=== PATIENT | male | born 1930 | race Caucasian/White ===

== ENCOUNTER 2018-07-26 23:45 | Inpatient (IN) | payer MEDICARE, MEDICAID ==
[2018-07-27 00:38] VITALS: BP 156/77
[2018-07-27 05:36] LABS: HEMOGLOBIN 12.4 gm/dL (12-16); MONOCYTE ABSOLUTE 0.6 Th/cmm (0.3-1.0); RED BLOOD COUNT 3.82 Mil/cmm (3.80-5.80)
[2018-07-27 05:38] LABS: % BASOPHILS 0.2 % (0.0-2.0); % EOSINOPHILS 0.9 % (0.0-5.0); % LYMPHOCYTES 37.6 % (20.0-50.0); % NEUTROPHILS 54.3 % (40.0-80.0); EOSINOPHILE ABSOLUTE 0.1 Th/cmm (0.1-0.4); HEMATOCRIT 36.1 % (41.0-60); LYMPHOCYTE ABSOLUTE 3.1 Th/cmm (1.5-3.0); MEAN CELL VOLUME 94.6 fl (80-99); MEAN CORPUSCULAR HEMOGLOBIN 32.4 pg (27.0-31.0); MEAN CORPUSCULAR HGB CONC 34.2 pg (28.0-36.0); MEAN PLATELET VOLUME 7.3 fl; NEUTROPHILE ABSOLUTE 4.5 Th/cmm (1.8-8.0); PLATELET COUNT 300 Th/cmm (150-400); RED CELL DISTRIBUTION WIDTH 13.2 % (11.5-20.0); WHITE BLOOD COUNT 8.3 Th/cmm (4.8-10.8)
[2018-07-27 06:03] LABS: ALB/GLOB RATIO 1.1 (1.0-1.8); ALBUMIN 2.9 gm/dL (4.2-5.5); ALKALINE PHOSPHATASE 51 U/L (34-104); ANION GAP 11.8 (7.0-16.0); BILIRUBIN,TOTAL 0.5 mg/dL (0.3-1.0); BUN - UREA NITROGEN 24 mg/dL (7-25); CALCIUM SERUM 8.8 mg/dL (8.6-10.3); CARBON DIOXIDE 19.7 mEq/L (21.0-31.0); CHLORIDE 111 mEq/L (98-107); CREATININE - SERUM 0.7 mg/dL (0.7-1.3); GLUCOSE 80 mg/dL (70-105); POTASSIUM SERUM 3.5 mEq/L (3.5-5.1); SGOT 15 U/L (13-39); SGPT/ALT 15 U/L (7-52); SODIUM SERUM 139 mEq/L (136-145); TOTAL PROTEIN,SERUM 5.6 gm/dL (6.0-8.3)
[2018-07-27] MEDS: INSULIN ASPART SLIDING SCALE 100 UNITS/ML UNIT SUBQ SCH ×4 (07:30→21:44)
--- NOTE | 2018-07-27 08:41 | History and Physical ---
History of Present Illness - HPI Chief Complaint: syncopal vs near-syncopal episode HPI: 87 y/o male who was transferred from [facility] for syncopal vs near syncopal episode. pt denies begum, sob, chest pain, patient passed out for 20 minutes. Patient has history of diabetes mellitus and hypertension but not on meds. Patient had a fullwork done in the ER at [place] which included CT head, chest xray, CBC, CMP, troponinm, BNP which was essentially normal. Please see attached transfer records. Patient was directly admitted for further evaluation and treatment. 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 Pertinent Hx GI: Report: No Pertinent Hx Psych: Report: No Pertinent Hx Musculoskeletal: Report: No Pertinent Hx Rheumatologic: Report: No pertinent Hx Infectious Disease: Report: No Pertinent Hx Renal/: Report: No Pertinent Hx Endocrine: Report: Diabetes (DM by history) Dermatology: Report: No Pertinent Hx - Past Surgical History Past Surgical History: No pertinent Hx Family Medical History - Family Member Mother History Unknown: Yes Social History Smoke: No Alcohol: None Drugs: None Lives: With Family - Allergies Allergies/Adverse Reactions: Allergies Allergy/AdvReac Type Severity Reaction Status Date / Time No Known Allergies Allergy Verified 07/27/18 00:38 Review of Systems - Review of Systems Constitutional: Report: No Significant Eyes: Report: No Significant ENT: Report: No Significant Respiratory: Report: No Significant Cardiovascular: Report: No Significant Gastrointestinal: Report: No Significant Genitourinary: Report: No Significant Musculoskeletal: Report: No Significant Skin: Report: No Significant Neurological: Report: No Significant Physical Exam - Physical Exam HEENT: Report: Ears Nose Throat within normal limits, Pharnyx within normal limits Neck: Report: Within normal limits Cardiovascular Systems: Report: +s1/s2 noted, Regular, Rate and Rhythm Respiratory: Report: Breath Sounds are within normal limits, Clear to Auscultation of lung morrow - Lab Results All Lab Results last 24 hours: Laboratory Results - last 24 hr 07/27/18 07/27/18 07/27/18 05:00 05:00 06:44 WBC 8.3 RBC 3.82 Hgb 12.4 Hct 36.1 L MCV 94.6 MCH 32.4 H MCHC Differential 34.2 RDW 13.2 Plt Count 300 MPV 7.3 Neutrophils % 54.3 Lymphocytes % 37.6 Monocytes % 7.0 Eosinophils % 0.9 Basophils % 0.2 Sodium 139 Potassium 3.5 Chloride 111 H Carbon Dioxide 19.7 L Anion Gap 11.8 BUN 24 Creatinine 0.7 Est GFR ( Amer) TNP Est GFR (Non-Af Amer) TNP BUN/Creatinine Ratio 34.3 Glucose 80 POC Glucose 71 Calcium 8.8 Total Bilirubin 0.5 AST 15 ALT 15 Alkaline Phosphatase 51 Total Protein 5.6 L Albumin 2.9 L Globulin 2.7 Albumin/Globulin Ratio 1.1 - Assessment Assessment: syncopal vs near-syncopal episode - Plan Plan: Cardiology consult Neurology consult telemetry cbc, cmp heplock
[2018-07-27] MEDS ORDERED: IOHEXOL 350mgI/mL 150mL IV ONE (19:46)
--- NOTE | 2018-07-28 04:35 | Consultation ---
DATE OF CONSULTATION: 07/27/[address] Modesto Pineda. HISTORY OF PRESENT ILLNESS: This is an 87-year-old male patient who was in the wheelchair, was on the chair restriction, patient had syncopal episode, 911 was called and the patient was transferred to [facility]. The patient's CT scan negative. Following this, the patient is transferred to [facility] with insurance reason. PAST MEDICAL HISTORY: Parkinson's disease, BPH, hypertension, incontinence of urine. FAMILY HISTORY: Unremarkable. SOCIAL HISTORY: No history of smoking, alcohol abuse. ALLERGIES: None. PHYSICAL EXAMINATION: VITAL SIGNS: Blood pressure 158/87, pulse 71, respirations 21. HEAD: Normocephalic. No lumps or bumps. EYES: Pupils equal, reactive to light. Fundi show AV nicking, sclerae white, conjunctivae pink. NECK: Carotid 2+. Normal upstroke. JVD flat. Thyroid not palpable. Lymph nodes not palpable. CHEST: Shows increased AP diameter. No kyphosis, scoliosis. LUNGS: Bilateral bronchovesicular breath sounds. HEART: PMI fifth intercostal space with lateral to midclavicular line. S1, S2. No S3, S4, soft systolic murmur. ABDOMEN: Soft. Liver, spleen not palpable. No organomegaly. Bowel sounds active. NEUROLOGIC: No focal neurological deficit. EXTREMITIES: Peripheral pulses 2+. No pedal edema. CLINICAL IMPRESSION: 1. Syncope. 2. Hypertension. 3. Benign prostatic hypertrophy. 4. Incontinence of urine. 5. Parkinson's disease. 6. Deafness. PLAN: Admit the patient. We will get troponin level, EKG, echocardiogram. JOB# [id number]
--- NOTE | 2018-07-28 08:17 | Diagnostic Imaging Report ---
Carotid ultrasound HISTORY: Syncope COMPARISON: None Technique: Longitudinal and transverse sonographic sector images of the carotid arteries were obtained with doppler analysis. FINDINGS: Exam of the right-sided demonstrates intimal thickening and mild to moderate generalized atherosclerotic vascular disease. Exam of the left side demonstrates intimal thickening and mild to moderate generalized atherosclerotic vascular disease. The velocity and velocity ratios are within normal limits. Antegrade vertebral artery flow is demonstrated bilaterally. IMPRESSION: Intimal thickening and mild to moderate generalized atherosclerotic vascular disease, left greater than right. No evidence of hemodynamic significant stenosis. Please correlate clinically.
[2018-07-28] MEDS: INSULIN ASPART SLIDING SCALE 100 UNITS/ML UNIT SUBQ SCH (08:32)
--- NOTE | 2018-07-28 08:50 | General Progress Note ---
Subjective - Review of Systems Service Date: 07/28/18 Subjective: Awake, alert, afebrile. no acute distress. for CT head today. For ECHO. Objective - Results Result Diagrams: 07/27/18 05:00 07/27/18 05:00 Recent Labs: Laboratory Last Values WBC 8.3 Th/cmm (4.8-10.8) 07/27/18 05:00 RBC 3.82 Mil/cmm (3.80-5.80) 07/27/18 05:00 Hgb 12.4 gm/dL (12-16) 07/27/18 05:00 Hct 36.1 % (41.0-60) L 07/27/18 05:00 MCV 94.6 fl (80-99) 07/27/18 05:00 MCH 32.4 pg (27.0-31.0) H 07/27/18 05:00 MCHC Differential 34.2 pg (28.0-36.0) 07/27/18 05:00 RDW 13.2 % (11.5-20.0) 07/27/18 05:00 Plt Count 300 Th/cmm (150-400) 07/27/18 05:00 MPV 7.3 fl 07/27/18 05:00 Neutrophils % 54.3 % (40.0-80.0) 07/27/18 05:00 Lymphocytes % 37.6 % (20.0-50.0) 07/27/18 05:00 Monocytes % 7.0 % (2.0-10.0) 07/27/18 05:00 Eosinophils % 0.9 % (0.0-5.0) 07/27/18 05:00 Basophils % 0.2 % (0.0-2.0) 07/27/18 05:00 Sodium 139 mEq/L (136-145) 07/27/18 05:00 Potassium 3.5 mEq/L (3.5-5.1) 07/27/18 05:00 Chloride 111 mEq/L (98-107) H 07/27/18 05:00 Carbon Dioxide 19.7 mEq/L (21.0-31.0) L 07/27/18 05:00 Anion Gap 11.8 (7.0-16.0) 07/27/18 05:00 BUN 24 mg/dL (7-25) 07/27/18 05:00 Creatinine 0.7 mg/dL (0.7-1.3) 07/27/18 05:00 Est GFR ( Amer) TNP 07/27/18 05:00 Est GFR (Non-Af Amer) TNP 07/27/18 05:00 BUN/Creatinine Ratio 34.3 07/27/18 05:00 Glucose 80 mg/dL (70-105) 07/27/18 05:00 POC Glucose 85 MG/DL (70 - 105) 07/28/18 06:04 Calcium 8.8 mg/dL (8.6-10.3) 07/27/18 05:00 Total Bilirubin 0.5 mg/dL (0.3-1.0) 07/27/18 05:00 AST 15 U/L (13-39) 07/27/18 05:00 ALT 15 U/L (7-52) 07/27/18 05:00 Alkaline Phosphatase 51 U/L (34-104) 07/27/18 05:00 Total Protein 5.6 gm/dL (6.0-8.3) L 07/27/18 05:00 Albumin 2.9 gm/dL (4.2-5.5) L 07/27/18 05:00 Globulin 2.7 gm/dL 07/27/18 05:00 Albumin/Globulin Ratio 1.1 (1.0-1.8) 07/27/18 05:00 - Physical Exam Vitals and I&O: Vital Signs Temp 97.7 F 07/28/18 07:52 Pulse 65 07/28/18 07:52 Resp 18 07/28/18 07:52 BP 142/73 07/28/18 07:52 Pulse Ox 99 07/28/18 07:52 Intake & Output 07/27/18 07/28/18 07/28/18 18:59 06:59 18:59 Intake Total 800 Balance 800 Weight (lbs) 47.627 kg Intake: Oral 800 Other: # Voids 2 Weight Source Bedscale Active Medications: Current Medications Carbidopa/Levodopa (Sinemet 25mg-100 Mg) 1 tab PO TID JEREMIAS Stop: 09/25/18 20:59 Last Admin: 07/28/18 08:34 Dose: 1 tab Insulin Aspart (Novolog Insulin Sliding Scale) 0 units SUBQ ACHS [facility]; Protocol Stop: 09/25/18 07:29 Last Admin: 07/28/18 08:32 Dose: Not Given Oxybutynin Chloride (Ditropan) 5 mg PO BID [facility] Stop: 09/25/18 16:59 Last Admin: 07/28/18 08:34 Dose: 5 mg Tamsulosin HCl (Flomax) 0.4 mg PO HS [facility] Stop: 09/25/18 20:59 Last Admin: 07/27/18 21:37 Dose: 0.4 mg General: Alert, No acute distress HEENT: Atraumatic, PERRLA, EOMI Neck: Supple Cardiovascular: Regular rate, Normal S1, Normal S2 Lungs: Clear to auscultation Abdomen: Bowel sounds Extremities: no Clubbing, no Cyanosis, no Edema Neurological: Normal gait, Normal speech Assessment/Plan - Assessment Assessment: syncopal vs near-syncopal episode HTN BPH Incontinence Parkinson's - Plan Plan: continue current order. For CT carotid angio today ECHO pending
--- NOTE | 2018-07-28 13:49 | Cardiology ---
07/27/[address] Modesto Pineda. M-MODE ECHOCARDIOGRAM: Mitral valve, anterior leaflet of mitral valve shows normal excursion, EF velocity. Posterior leaflet of mitral valve shows normal excursion. Left ventricular posterior wall shows increased thickness, normal excursion. Interventricular septum shows increased thickness, normal excursion. There is minimal hypertrophy of the left ventricle, ejection fraction 75%. Left atrium normal. Aortic root shows normal dimension, normal excursion of aortic leaflets. CONCLUSION: Minimal hypertrophy of the left ventricle, ejection fraction 75%. 2D ECHO: Long axis view showed normal sized left ventricle with minimal hypertrophy of the left ventricle. Left atrium normal. Aortic root shows normal dimension, normal excursion of aortic leaflets. Short axis view of mitral valve normal. Short axis view of aortic valve normal. Apical four chamber view showed normal sized left ventricle with minimal hypertrophy of the left ventricle. Left atrium normal. Right ventricular cavity, right atrium normal, no pericardial effusion. CONCLUSION: Minimal hypertrophy of the left ventricle, ejection fraction 75%. Doppler study shows mild mitral regurgitation, mild tricuspid regurgitation, mild pulmonary regurgitation, moderate aortic regurgitation, right ventricular systolic pressure 35 mmHg. JOB# [id number]
--- NOTE | 2018-07-28 18:14 | Consultation ---
DATE OF CONSULTATION: 07/27/2018 NEUROLOGY CONSULTATION HISTORY OF PRESENT ILLNESS: An 87-year-old male transferred from [facility], admitted here with loss of consciousness, not responding for about 15-20 minutes. The patient apparently had a workup done at [place]. CT scan of head is reported to be negative. No acute process. I did not see any carotid Doppler. The patient lying in bed, really does not talk much. Significantly reduced hearing. PAST MEDICAL HISTORY: Diabetes, hypertension, markedly reduced hearing, ataxia. MEDICATIONS: As per reconciliation. Here, the patient is on Sinemet 25/100 mg t.i.d. The patient on insulin. REVIEW OF SYSTEMS: The patient has tremor. Somewhat immobile facies. Increased tone. Ambulation difficulty. Able to swallow. No seizures. PHYSICAL EXAMINATION: VITAL SIGNS: Temperature 97.6, blood pressure 150/80, pulse is 76. NECK: Supple, no bruits. HEART: Sounds S1, S2. LUNGS: Clear. NEUROLOGIC: The patient is lying in bed. Markedly reduced hearing. Pupils reactive to light. The patient has full eye movement. The patient immobile facies, increased tone. He has a tremor, which is predominantly like a resting tremor, more on the left. The patient has increased tone in the lower extremities. He will lift upper extremity, limited lower extremity. INVESTIGATIONS: 1. The patient has loss of consciousness and syncope. We will check the carotid Doppler studies. 2. Parkinson's. 3. Markedly reduced hearing. 4. Diabetes. 5. Hypertension. PLAN: Carotid Doppler studies. Continue present medications. JOB# [id number]
--- NOTE | 2018-07-29 05:13 | General Progress Note ---
Subjective - Review of Systems Service Date: 07/29/18 Subjective: Awake, alert, afebrile. no acute distress. No new changes. Patient resting comfortably in bed. Objective - Results Result Diagrams: 07/27/18 05:00 07/27/18 05:00 Recent Labs: Laboratory Last Values WBC 8.3 Th/cmm (4.8-10.8) 07/27/18 05:00 RBC 3.82 Mil/cmm (3.80-5.80) 07/27/18 05:00 Hgb 12.4 gm/dL (12-16) 07/27/18 05:00 Hct 36.1 % (41.0-60) L 07/27/18 05:00 MCV 94.6 fl (80-99) 07/27/18 05:00 MCH 32.4 pg (27.0-31.0) H 07/27/18 05:00 MCHC Differential 34.2 pg (28.0-36.0) 07/27/18 05:00 RDW 13.2 % (11.5-20.0) 07/27/18 05:00 Plt Count 300 Th/cmm (150-400) 07/27/18 05:00 MPV 7.3 fl 07/27/18 05:00 Neutrophils % 54.3 % (40.0-80.0) 07/27/18 05:00 Lymphocytes % 37.6 % (20.0-50.0) 07/27/18 05:00 Monocytes % 7.0 % (2.0-10.0) 07/27/18 05:00 Eosinophils % 0.9 % (0.0-5.0) 07/27/18 05:00 Basophils % 0.2 % (0.0-2.0) 07/27/18 05:00 Sodium 139 mEq/L (136-145) 07/27/18 05:00 Potassium 3.5 mEq/L (3.5-5.1) 07/27/18 05:00 Chloride 111 mEq/L (98-107) H 07/27/18 05:00 Carbon Dioxide 19.7 mEq/L (21.0-31.0) L 07/27/18 05:00 Anion Gap 11.8 (7.0-16.0) 07/27/18 05:00 BUN 24 mg/dL (7-25) 07/27/18 05:00 Creatinine 0.7 mg/dL (0.7-1.3) 07/27/18 05:00 Est GFR ( Amer) TNP 07/27/18 05:00 Est GFR (Non-Af Amer) TNP 07/27/18 05:00 BUN/Creatinine Ratio 34.3 07/27/18 05:00 Glucose 80 mg/dL (70-105) 07/27/18 05:00 POC Glucose 85 MG/DL (70 - 105) 07/28/18 06:04 Calcium 8.8 mg/dL (8.6-10.3) 07/27/18 05:00 Total Bilirubin 0.5 mg/dL (0.3-1.0) 07/27/18 05:00 AST 15 U/L (13-39) 07/27/18 05:00 ALT 15 U/L (7-52) 07/27/18 05:00 Alkaline Phosphatase 51 U/L (34-104) 07/27/18 05:00 Total Protein 5.6 gm/dL (6.0-8.3) L 07/27/18 05:00 Albumin 2.9 gm/dL (4.2-5.5) L 07/27/18 05:00 Globulin 2.7 gm/dL 07/27/18 05:00 Albumin/Globulin Ratio 1.1 (1.0-1.8) 07/27/18 05:00 - Physical Exam Vitals and I&O: Vital Signs Temp 98 F 07/29/18 04:22 Pulse 98 07/29/18 04:22 Resp 18 07/29/18 04:22 BP 135/65 07/29/18 04:22 Pulse Ox 98 07/29/18 04:22 Intake & Output 07/28/18 07/28/18 07/29/18 06:59 18:59 06:59 Intake Total 800 650 Balance 800 650 Weight (lbs) 47.627 kg 47.627 kg Intake: Oral 800 650 Other: # Voids 2 3 Weight Source Bedscale Bedscale Active Medications: Current Medications Carbidopa/Levodopa (Sinemet 25mg-100 Mg) 1 tab PO TID JEREMIAS Stop: 09/25/18 20:59 Last Admin: 07/28/18 21:24 Dose: 1 tab Oxybutynin Chloride (Ditropan) 5 mg PO BID [facility] Stop: 09/25/18 16:59 Last Admin: 07/28/18 16:48 Dose: 5 mg Tamsulosin HCl (Flomax) 0.4 mg PO HS [facility] Stop: 09/25/18 20:59 Last Admin: 07/28/18 21:24 Dose: 0.4 mg General: Alert, No acute distress HEENT: Atraumatic, PERRLA, EOMI Neck: Supple Cardiovascular: Regular rate, Normal S1, Normal S2 Lungs: Clear to auscultation Abdomen: Bowel sounds Extremities: no Clubbing, no Cyanosis, no Edema Neurological: Normal gait, Normal speech Assessment/Plan - Assessment Assessment: syncopal vs near-syncopal episode HTN BPH Incontinence Parkinson's - Plan Plan: continue current order. carotid dopplers negative nancy ECHO results noted. maybe discharge today if okay with consultants.
--- NOTE | 2018-07-29 08:40 | Diagnostic Imaging Report ---
CT angiogram of the carotid arteries with intravenous contrast (CTA) HISTORY: Syncope Following administration of intravenous contrast, axial sections were obtained from the lower cranial region down to level below the thoracic inlet. Total DLP equals 216 CTDI equals 35.0 The exam demonstrates normal opacification and a normal caliber of the right common carotid artery. No significant focal plaque or luminal narrowing is seen. The left common carotid artery demonstrates minimal atherosclerotic calcified plaque within the distal portion. No significant narrowing/stenosis. Normal caliber of the right internal carotid artery with no significant narrowing or stenosis. The external carotid artery on the right side also is unremarkable. The left internal carotid artery demonstrates minimal plaque within the proximal portion. No other significant narrowing or stenosis. There is patency of the vertebral arteries bilaterally with no significant narrowing or stenosis. No abnormalities about the basilar artery. IMPRESSION: 1. Minimal atherosclerotic changes with no significant narrowing or stenosis through the carotid bifurcation region.
--- NOTE | 2018-07-30 06:09 | General Progress Note ---
Subjective - Review of Systems Service Date: 07/30/18 Subjective: Awake, alert, afebrile. no acute distress. No new changes. Patient resting comfortably in bed. no new events. Objective - Results Result Diagrams: 07/27/18 05:00 07/27/18 05:00 Recent Labs: Laboratory Last Values WBC 8.3 Th/cmm (4.8-10.8) 07/27/18 05:00 RBC 3.82 Mil/cmm (3.80-5.80) 07/27/18 05:00 Hgb 12.4 gm/dL (12-16) 07/27/18 05:00 Hct 36.1 % (41.0-60) L 07/27/18 05:00 MCV 94.6 fl (80-99) 07/27/18 05:00 MCH 32.4 pg (27.0-31.0) H 07/27/18 05:00 MCHC Differential 34.2 pg (28.0-36.0) 07/27/18 05:00 RDW 13.2 % (11.5-20.0) 07/27/18 05:00 Plt Count 300 Th/cmm (150-400) 07/27/18 05:00 MPV 7.3 fl 07/27/18 05:00 Neutrophils % 54.3 % (40.0-80.0) 07/27/18 05:00 Lymphocytes % 37.6 % (20.0-50.0) 07/27/18 05:00 Monocytes % 7.0 % (2.0-10.0) 07/27/18 05:00 Eosinophils % 0.9 % (0.0-5.0) 07/27/18 05:00 Basophils % 0.2 % (0.0-2.0) 07/27/18 05:00 Sodium 139 mEq/L (136-145) 07/27/18 05:00 Potassium 3.5 mEq/L (3.5-5.1) 07/27/18 05:00 Chloride 111 mEq/L (98-107) H 07/27/18 05:00 Carbon Dioxide 19.7 mEq/L (21.0-31.0) L 07/27/18 05:00 Anion Gap 11.8 (7.0-16.0) 07/27/18 05:00 BUN 24 mg/dL (7-25) 07/27/18 05:00 Creatinine 0.7 mg/dL (0.7-1.3) 07/27/18 05:00 Est GFR ( Amer) TNP 07/27/18 05:00 Est GFR (Non-Af Amer) TNP 07/27/18 05:00 BUN/Creatinine Ratio 34.3 07/27/18 05:00 Glucose 80 mg/dL (70-105) 07/27/18 05:00 POC Glucose 85 MG/DL (70 - 105) 07/28/18 06:04 Calcium 8.8 mg/dL (8.6-10.3) 07/27/18 05:00 Total Bilirubin 0.5 mg/dL (0.3-1.0) 07/27/18 05:00 AST 15 U/L (13-39) 07/27/18 05:00 ALT 15 U/L (7-52) 07/27/18 05:00 Alkaline Phosphatase 51 U/L (34-104) 07/27/18 05:00 Total Protein 5.6 gm/dL (6.0-8.3) L 07/27/18 05:00 Albumin 2.9 gm/dL (4.2-5.5) L 07/27/18 05:00 Globulin 2.7 gm/dL 07/27/18 05:00 Albumin/Globulin Ratio 1.1 (1.0-1.8) 07/27/18 05:00 - Physical Exam Vitals and I&O: Vital Signs Temp 97.9 F 07/30/18 04:00 Pulse 66 07/30/18 04:00 Resp 18 07/30/18 04:00 BP 133/64 07/30/18 04:00 Pulse Ox 97 07/30/18 04:00 Intake & Output 07/29/18 07/29/18 07/30/18 06:59 18:59 06:59 Intake Total 950 Balance 950 Weight (lbs) 47.627 kg 48.081 kg Intake: Oral 950 Other: # Voids 3 2 # Bowel Movements 0 Weight Source Bedscale Bedscale Active Medications: Current Medications Carbidopa/Levodopa (Sinemet 25mg-100 Mg) 1 tab PO TID JEREMIAS Stop: 09/25/18 20:59 Last Admin: 07/29/18 22:01 Dose: 1 tab Oxybutynin Chloride (Ditropan) 5 mg PO BID [facility] Stop: 09/25/18 16:59 Last Admin: 07/29/18 17:25 Dose: 5 mg Tamsulosin HCl (Flomax) 0.4 mg PO HS [facility] Stop: 09/25/18 20:59 Last Admin: 07/29/18 22:01 Dose: 0.4 mg General: Alert, No acute distress HEENT: Atraumatic, PERRLA, EOMI Neck: Supple Cardiovascular: Regular rate, Normal S1, Normal S2 Lungs: Clear to auscultation Abdomen: Bowel sounds Extremities: no Clubbing, no Cyanosis, no Edema Neurological: Normal gait, Normal speech Assessment/Plan - Assessment Assessment: syncopal vs near-syncopal episode HTN BPH Incontinence Parkinson's - Plan Plan: continue current order. carotid dopplers negative nancy ECHO results noted. maybe discharge if okay with consultants. Nutritional Asmnt/Malnutr-PDOC - Dietary Evaluation Malnutrition Findings (Please click <Entered> for more info): Nutritional Asmnt/Malnutrition Start: 07/29/18 13: 33 Text: Status: Complete Freq: Protocol: Document 07/29/18 13:33 JAN (Rec: 07/29/18 13:46 [email or web address]) Nutritional Asmnt/Malnutrition Patient General Information Nutritional Screening Moderate Risk Diagnosis Syncope episode Pertinent Medical Hx/Surgical Hx HTN, Diabetes Subjective Information Per nursing notes, patient with tremors but is able to feed self; has upper and lower dentures. Patient with good appetite and tolerating meals. Current Diet Order/ Nutrition Support 60 gm [facility] Patient / S.O Not Indicated Pertinent Medications no nutrition related medications Pertinent Labs (07/27) albumin 2.9 Nutritional Hx/Data Height 1.73 m Height (Calculated Centimeters) 172.7 Current Weight (lbs) 47.627 kg Weight (Calculated Kilograms) 47.6 Weight (Calculated Grams) 40240.2 [place] Body Weight 154 % [place] Body Weight 68 Body Mass Index (BMI) 16.0 Recent Weight Change No Weight Status Underweight GI Symptoms GI Symptoms None Last BM none noted in EMR since admission Difficult in: None Food Allergies No Cultural/Ethnic/Sabianism Belief none indicated Usual diet at home unknown (has caregiver who prepares 3 meals/day) Skin Integrity/Comment: Sid 13, bruise/reddened left upper arm, right upper arm, left anterior leg Current %PO Fair (50-74%) Estimated Nutritional Goals BEE in Kcals: Using Current wt Calories/Kcals/Kg using 47.7 kg CBW 30-35 kcal/ kg Kcals Calculated ~0608-9550 kcal/day Protein: Using Current wt Protein g/k.2-1.5 gm/kg Protein Calculated ~60-70 gm/day Fluid: ml ~9512-7363 ml/day Nutritional Problem 1. Problem Problem Underweight related to Etiology possible poor intake prior to admission aeb Signs/Symptoms: BMI 16 Intervention/Recommendation Comments 1. Continue 60 gm CCHO diet as tolerated by patient (hx of DM per H&P). 2. Add Glucerna 1/meal for additional calories/protein to assist with weight gain. Expected Outcomes/Goals Expected Outcomes/Goals Oral intake >75% of meals, weight stable or gain toward ideal body weight, nutrition related labs WNL
--- NOTE | 2018-07-31 06:04 | General Progress Note ---
Subjective - Review of Systems Service Date: 07/31/18 Subjective: Awake, alert, afebrile. no acute distress. No new changes. Patient resting comfortably in bed. no new events. Objective - Results Result Diagrams: 07/27/18 05:00 07/27/18 05:00 Recent Labs: Laboratory Last Values WBC 8.3 Th/cmm (4.8-10.8) 07/27/18 05:00 RBC 3.82 Mil/cmm (3.80-5.80) 07/27/18 05:00 Hgb 12.4 gm/dL (12-16) 07/27/18 05:00 Hct 36.1 % (41.0-60) L 07/27/18 05:00 MCV 94.6 fl (80-99) 07/27/18 05:00 MCH 32.4 pg (27.0-31.0) H 07/27/18 05:00 MCHC Differential 34.2 pg (28.0-36.0) 07/27/18 05:00 RDW 13.2 % (11.5-20.0) 07/27/18 05:00 Plt Count 300 Th/cmm (150-400) 07/27/18 05:00 MPV 7.3 fl 07/27/18 05:00 Neutrophils % 54.3 % (40.0-80.0) 07/27/18 05:00 Lymphocytes % 37.6 % (20.0-50.0) 07/27/18 05:00 Monocytes % 7.0 % (2.0-10.0) 07/27/18 05:00 Eosinophils % 0.9 % (0.0-5.0) 07/27/18 05:00 Basophils % 0.2 % (0.0-2.0) 07/27/18 05:00 Sodium 139 mEq/L (136-145) 07/27/18 05:00 Potassium 3.5 mEq/L (3.5-5.1) 07/27/18 05:00 Chloride 111 mEq/L (98-107) H 07/27/18 05:00 Carbon Dioxide 19.7 mEq/L (21.0-31.0) L 07/27/18 05:00 Anion Gap 11.8 (7.0-16.0) 07/27/18 05:00 BUN 24 mg/dL (7-25) 07/27/18 05:00 Creatinine 0.7 mg/dL (0.7-1.3) 07/27/18 05:00 Est GFR ( Amer) TNP 07/27/18 05:00 Est GFR (Non-Af Amer) TNP 07/27/18 05:00 BUN/Creatinine Ratio 34.3 07/27/18 05:00 Glucose 80 mg/dL (70-105) 07/27/18 05:00 POC Glucose 85 MG/DL (70 - 105) 07/28/18 06:04 Calcium 8.8 mg/dL (8.6-10.3) 07/27/18 05:00 Total Bilirubin 0.5 mg/dL (0.3-1.0) 07/27/18 05:00 AST 15 U/L (13-39) 07/27/18 05:00 ALT 15 U/L (7-52) 07/27/18 05:00 Alkaline Phosphatase 51 U/L (34-104) 07/27/18 05:00 Total Protein 5.6 gm/dL (6.0-8.3) L 07/27/18 05:00 Albumin 2.9 gm/dL (4.2-5.5) L 07/27/18 05:00 Globulin 2.7 gm/dL 07/27/18 05:00 Albumin/Globulin Ratio 1.1 (1.0-1.8) 07/27/18 05:00 - Physical Exam Vitals and I&O: Vital Signs Temp 98.5 F 07/31/18 00:00 Pulse 63 07/31/18 00:00 Resp 18 07/31/18 00:00 BP 118/64 07/31/18 00:00 Pulse Ox 97 07/31/18 00:00 Intake & Output 07/30/18 07/30/18 07/31/18 06:59 18:59 06:59 Intake Total 50 1800 Output Total 0 Balance 50 1800 Weight (lbs) 48.081 kg 48.081 kg Intake: Oral 50 1800 Output: Urine/Stool Mix 0 Other: # Voids 3 3 # Bowel Movements 0 Weight Source Bedscale Bedscale Active Medications: Current Medications Carbidopa/Levodopa (Sinemet 25mg-100 Mg) 1 tab PO TID JEREMIAS Stop: 09/25/18 20:59 Last Admin: 07/30/18 22:20 Dose: 1 tab Oxybutynin Chloride (Ditropan) 5 mg PO BID [facility] Stop: 09/25/18 16:59 Last Admin: 07/30/18 16:49 Dose: 5 mg Tamsulosin HCl (Flomax) 0.4 mg PO HS [facility] Stop: 09/25/18 20:59 Last Admin: 07/30/18 22:20 Dose: 0.4 mg General: Alert, No acute distress HEENT: Atraumatic, PERRLA, EOMI Neck: Supple Cardiovascular: Regular rate, Normal S1, Normal S2 Lungs: Clear to auscultation Abdomen: Bowel sounds Extremities: no Clubbing, no Cyanosis, no Edema Neurological: Normal gait, Normal speech Assessment/Plan - Assessment Assessment: syncopal vs near-syncopal episode HTN BPH Incontinence Parkinson's - Plan Plan: continue current order. carotid dopplers negative nancy ECHO results noted. maybe discharge if okay with consultants. Nutritional Asmnt/Malnutr-PDOC - Dietary Evaluation Malnutrition Findings (Please click <Entered> for more info): Nutritional Asmnt/Malnutrition Start: 07/29/18 13: 33 Text: Status: Complete Freq: Protocol: Document 07/29/18 13:33 [email or web address] (Rec: 07/29/18 13:46 [email or web address] FRENCH- [email or web address]) Nutritional Asmnt/Malnutrition Patient General Information Nutritional Screening Moderate Risk Diagnosis Syncope episode Pertinent Medical Hx/Surgical Hx HTN, Diabetes Subjective Information Per nursing notes, patient with tremors but is able to feed self; has upper and lower dentures. Patient with good appetite and tolerating meals. Current Diet Order/ Nutrition Support 60 gm [facility] Patient / S.O Not Indicated Pertinent Medications no nutrition related medications Pertinent Labs (07/27) albumin 2.9 Nutritional Hx/Data Height 1.73 m Height (Calculated Centimeters) 172.7 Current Weight (lbs) 47.627 kg Weight (Calculated Kilograms) 47.6 Weight (Calculated Grams) 82581.2 [place] Body Weight 154 % [place] Body Weight 68 Body Mass Index (BMI) 16.0 Recent Weight Change No Weight Status Underweight GI Symptoms GI Symptoms None Last BM none noted in EMR since admission Difficult in: None Food Allergies No Cultural/Ethnic/Sabianist Belief none indicated Usual diet at home unknown (has caregiver who prepares 3 meals/day) Skin Integrity/Comment: Sid 13, bruise/reddened left upper arm, right upper arm, left anterior leg Current %PO Fair (50-74%) Estimated Nutritional Goals BEE in Kcals: Using Current wt Calories/Kcals/Kg using 47.7 kg CBW 30-35 kcal/ kg Kcals Calculated ~8812-7820 kcal/day Protein: Using Current wt Protein g/k.2-1.5 gm/kg Protein Calculated ~60-70 gm/day Fluid: ml ~1083-4479 ml/day Nutritional Problem 1. Problem Problem Underweight related to Etiology possible poor intake prior to admission aeb Signs/Symptoms: BMI 16 Intervention/Recommendation Comments 1. Continue 60 gm CCHO diet as tolerated by patient (hx of DM per H&P). 2. Add Glucerna 1/meal for additional calories/protein to assist with weight gain. Expected Outcomes/Goals Expected Outcomes/Goals Oral intake >75% of meals, weight stable or gain toward ideal body weight, nutrition related labs WNL
--- NOTE | 2018-07-31 22:31 | Progress Notes ---
DATE: 07/31/2018 SUBJECTIVE: The patient is in bed, somewhat sleepy, will awaken. No repeat episode, loss of consciousness. The patient still a lot of stiffness, rigidity. OBJECTIVE: VITAL SIGNS: 98.2, blood pressure 130/70, pulse is 74. NECK: Supple, no bruits. CARDIOVASCULAR: Heart sounds S1, S2. RESPIRATORY: Lungs clear. NEUROLOGIC: The patient is lying in bed. The patient initially sleepy will awaken up. Limited interaction. The patient has tremor. Immobile with increased tone, rigidity. INVESTIGATIONS: Carotid Doppler okay. No stenosis. IMPRESSION: 1. Loss of consciousness, syncope. 2. Parkinson. 3. Markedly reduced hearing. 4. Diabetes. 5. Hypertension. PLAN: Continue present treatment. Outpatient, the patient should follow with Neurology. JOB# [id number]
--- NOTE | 2018-08-04 06:00 | Discharge Summary ---
DATE OF DISCHARGE: 07/31/2018 PRELIMINARY DIAGNOSES: 1. Syncopal versus near syncopal episode. 2. Hypertension. 3. Benign prostatic hypertrophy. 4. Incontinence. 5. Parkinson's. DISCHARGE DIAGNOSES: 1. Syncopal versus near syncopal episode. 2. Hypertension. 3. Benign prostatic hypertrophy. 4. Incontinence. 5. Parkinson's. BRIEF HISTORY OF PRESENT ILLNESS: This is an 87-year-old male who was transferred from [facility] to [facility] for syncopal versus near syncopal episode. The patient passed out for nearly 20 minutes during which time, the patient denied having any headaches, shortness of breath or chest pain. He has a previous history of hypertension, BPH, was seen and evaluated in [place] [facility] and had a workup done included a CT of the head, chest x-ray, CBC, CMP, troponin level and BNP, which was essentially normal. He was subsequently transferred here for further evaluation and treatment. HOSPITAL COURSE: The patient was seen and evaluated by Cardiology and Neurology. See dictated report. The patient had a carotid artery ultrasound duplex, which did not show any significant stenosis. The patient also had a CT of the head including the carotids. See dictated report. The patient improved during his hospital stay and was subsequently discharged, was advised to follow up with his regular physician. JOB# [id number]
== END 2018-07-31 15:05 | disposition home or self-care (01) | DRG 312 ==
LOC: TELE 23:45
PROVIDERS: ADMIT Family Medicine; ATTEND Family Medicine
DX: R55 Syncope and collapse (principal); E44.0 Moderate protein-calorie malnutrition; Z68.1 Body mass index [BMI] 19.9 or less, adult; I10 Essential (primary) hypertension; E11.9 Type 2 diabetes mellitus without complications; G20 Parkinson's disease; H91.90 Unspecified hearing loss, unspecified ear; R32 Unspecified urinary incontinence; N40.0 Benign prostatic hyperplasia without lower urinary tract symptoms
CPT/HCPCS: 36415-UA; 70498-TC; 80053-TC; 82948-90; 85025-TC; 93005; 93880-TC; J1815; Z7610